=== PATIENT | female | born 1975 | race Caucasian/White ===

== ENCOUNTER 2016-11-20 02:09 | Emergency (ER) | payer SELFPAY ==
[~2016-11-20] VITALS: Ht 165.1 cm; Wt 89.4 kg
[2016-11-20 02:36] VITALS: BP 136/87
== END 2016-11-20 11:52 | disposition left against medical advice (07) ==
LOC: ER 02:09
DX: R06.02 Shortness of breath (principal); Z53.21 Procedure and treatment not carried out due to patient leaving prior to being seen by health care provider; Z76.0 Encounter for issue of repeat prescription